=== PATIENT | female | born 1945 | race American Indian/Alaskan Native ===

== ENCOUNTER 2018-03-30 10:47 | Emergency (ER) | payer BC, MEDICARE ==
[2018-03-30 11:13] VITALS: BP 163/95; PULSE 78; RESP 18; TEMP 97.9; O2SAT 100
--- NOTE | 2018-03-30 12:49 | CT ---
Date of service: 03/30/2018 PROCEDURE: CT HEAD WITHOUT CONTRAST. HISTORY: frontal olvera, laceration s.p fall COMPARISON: None available. TECHNIQUE: Axial computed tomography images were obtained through the head/brain without intravenous contrast. Radiation dose: Total exam DLP = 1050.72 mGy-cm. This CT exam was performed using one or more of the following dose reduction techniques: Automated exposure control, adjustment of the mA and/or kV according to patient size, and/or use of iterative reconstruction technique. FINDINGS: HEMORRHAGE: No intracranial hemorrhage. BRAIN: Diffuse atrophy with prominence of the ventricles and sulci noted. No mass effect or edema. Scattered periventricular and subcortical white matter hypodensities, which are nonspecific, but often seen with chronic microvascular ischemic disease. Please note that MRI with diffusion imaging is more sensitive in the detection of acute ischemic event. VENTRICLES: No hydrocephalus. CALVARIUM: Unremarkable. PARANASAL SINUSES: Mucosal thickening of the ethmoid air cells. MASTOID AIR CELLS: Unremarkable as visualized. No inflammatory changes. OTHER FINDINGS: Mild frontal scalp soft tissue swelling. IMPRESSION: Mild frontal scalp soft tissue swelling. Generalized atrophy. Nonspecific white matter changes. Mucosal thickening of the ethmoid air cells; correlate clinically for sinusitis.
--- NOTE | 2018-03-30 12:54 | C.PDOC ---
History Of Present Illness 72 year old female presents to the ED for evaluation of a forehead laceration sustained this morning. Patient states she tripped and fell onto pavement. Patient hit her forehead and sustaind a laceration from her sunglasses. She denies loss of consciousness, nausea, vomiting, extremity pain, or any other injuries at this time. Time Seen by Provider: 03/30/18 11:13 Chief Complaint (Nursing): Trauma History Per: Patient History/Exam Limitations: no limitations Onset/Duration Of Symptoms: Hrs Current Symptoms Are (Timing): Still Present Additional History Per: Patient Past Medical History Reviewed: Historical Data, Nursing Documentation, Vital Signs Vital Signs: Last Vital Signs Temp 97.9 F 03/30/18 11:06 Pulse 78 03/30/18 11:06 Resp 18 03/30/18 11:06 BP 163/95 H 03/30/18 11:06 Pulse Ox 100 03/30/18 11:06 - Medical History PMH: Back Problems Surgical History: No Surg Hx Family History: States: Unknown Family Hx - Social History Hx Alcohol Use: No Hx Substance Use: No Review Of Systems Gastrointestinal: Negative for: Nausea, Vomiting Genitourinary: Negative for: Other Musculoskeletal: Negative for: Shoulder Pain, Arm Pain, Leg Pain Skin: Positive for: Other (forehead laceration ) Neurological: Negative for: Other (loss of consciousness ) Physical Exam - Physical Exam Appears: Non-toxic, No Acute Distress Skin: Normal Color, Warm, Dry Head: No Tenderness, No Swelling, Abrasion (to right side of mid-forehead), Laceration (2cm, superficial, linear to left side of mid-forehead ) Eye(s): bilateral: Normal Inspection, PERRL, EOMI Ear(s): Bilateral: Normal Nose: Normal, No Epistaxis, No Deformity, No Tenderness Oral Mucosa: Moist Lips: Swelling (left, lower ), No Laceration Teeth: Normal Dentition, No Loose, No Avulsed Neck: Normal ROM, No Midline Cervical Tenderness, No Paracervical Tenderness, Supple Chest: Symmetrical, No Deformity, No Tenderness Cardiovascular: Rhythm Regular Respiratory: No Accessory Muscle Use Extremity: Normal ROM, No Tenderness, No Deformity, No Swelling Neurological/Psych: Oriented x3, Normal Speech, Normal Cognition Gait: Steady ED Course And Treatment O2 Sat by Pulse Oximetry: 100 (on RA) Pulse Ox Interpretation: Normal - CT Scan/US CT Head Other Rad Studies (CT/US): Interpreted By Me, Read By Radiologist, Radiology Report Reviewed CT/US Interpretation: PROCEDURE: CT HEAD WITHOUT CONTRAST. HISTORY: frontal olvera, laceration s.p fall. COMPARISON: None available. TECHNIQUE: Axial computed tomography images were obtained through the head/brain without intravenous contrast. Radiation dose: Total exam DLP = 1050.72 mGy-cm. This CT exam was performed using one or more of the following dose reduction techniques: Automated exposure control, adjustment of the mA and/or kV according to patient size, and/or use of iterative reconstruction technique. FINDINGS: HEMORRHAGE: No intracranial hemorrhage. BRAIN: Diffuse atrophy with prominence of the ventricles and sulci noted. No mass effect or edema. Scattered periventricular and subcortical white matter hypodensities, which are nonspecific, but often seen with chronic microvascular ischemic disease. Please note that MRI with diffusion imaging is more sensitive in the detection of acute ischemic event. VENTRICLES: No hydrocephalus. CALVARIUM: Unremarkable. PARANASAL SINUSES: Mucosal thickening of the ethmoid air cells. MASTOID AIR CELLS: Unremarkable as visualized. No inflammatory changes. OTHER FINDINGS: Mild frontal scalp soft tissue swelling. IMPRESSION: Mild frontal scalp soft tissue swelling. Generalized atrophy. Nonspecific white matter changes. Mucosal thickening of the ethmoid air cells; correlate clinically for sinusitis. Laceration - Laceration Repair left side of mid-forehead Wound Length (In cm): 2 Description Of Wound: Linear Wound Examination: Irrigated With Saline, No FB With Wound Exploration, No Tendon Injury With Wound Exploration Wound Closure: Skin Glue (Dermabond ) Wound Complexity: Simple Medical Decision Making Medical Decision Making: Impression: 72 year old female with laceration to forehead Plan: * Tylenol PO * CT Head * reassess and disposition Progress: Tylenol PO given. CT head ordered and reviewed. 2cm linear laceration to the left side of mid-forehead. Wound irrigated with NS and explored. No FB seen. Area sealed with Dermabond skin adhesive. Patient tolerated well with no complications. On reassessment, patient is resting comfortably, showing no signs of distress and reports an improvement in symptoms. Patient is advised on wound care instructions and is stable for discharge. Disposition Counseled Patient/Family Regarding: Diagnosis, Need For Followup, Rx Given - Disposition Referrals: Angelita Chand MD [Medical Doctor] - Disposition: HOME/ ROUTINE Disposition Time: 13:00 Condition: STABLE Additional Instructions: Skin glue was used to close your wound, do not apply ointment to area as it may dissolve glue. Glue patch will gradually fall off in few days. Advise return to the ER if any alteration in behavior or mental status, severe headache, nausea, persistent vomiting, or loss of consciousness occurs. Instructions: Laceration Repair With Glue (DC), Head Injury (ED) Forms: [employer] (Macedonian) - POA Present On Arrival: None - Clinical Impression Clinical Impression: Forehead laceration, Contusion - PA / [employer]IST / Resident Statement MD/DO has reviewed & agrees with the documentation as recorded. - Scribe Statement The provider has reviewed the documentation as recorded by the Scribe (Irene Lopez) All medical record entries made by the Scribe were at my direction and personally dictated by me. I have reviewed the chart and agree that the record accurately reflects my personal performance of the history, physical exam, medical decision making, and the department course for this patient. I have also personally directed, reviewed, and agree with the discharge instructions and disposition.
== END 2018-03-30 13:06 | disposition home or self-care (01) ==
LOC: C.ER 10:47
DX: S01.81XA Laceration without foreign body of other part of head, initial encounter (principal); T14.8XXA Other injury of unspecified body region, initial encounter; W01.0XXA Fall on same level from slipping, tripping and stumbling without subsequent striking against object, initial encounter; Y92.480 Sidewalk as the place of occurrence of the external cause

== ENCOUNTER 2018-04-10 18:06 | Emergency (ER) | payer MEDICARE ==
[2018-04-10 18:24] VITALS: BMI 28.3
[2018-04-10 18:25] VITALS: TEMP 99.1
[2018-04-10] MEDS ORDERED: Sodium Chloride 0.9% 500 ML IV ONE ×2 (19:21→19:35)
[2018-04-10 19:52] LABS: BASO % 0.4 % (0.0-2.0); EOS # 0.1 K/uL (0.0-0.7); EOS % 1.8 % (0.0-4.0); HEMOGLOBIN 14.8 g/dL (11.0-16.0); LYMPH # 1.7 K/uL (1.0-4.3); LYMPH % 22.4 % (20.0-40.0); MEAN CELL VOLUME 87.8 fL (81.0-99.0); MEAN CORPUSCULAR HEMOGLOBIN 29.6 pg (27.0-31.0); MEAN CORPUSCULAR HGB CONC 33.7 g/dL (33.0-37.0); MEAN PLATELET VOLUME 9.6 fL (7.2-11.7); MONO # 0.4 K/uL (0.0-0.8); NEUT # 5.3 K/uL (1.8-7.0); NEUT % 70.4 % (50.0-75.0); RBC 4.99 Mil/uL (3.80-5.20); RED CELL DISTRIBUTION WIDTH 16.1 % (11.5-14.5); WHITE BLOOD COUNT 7.5 K/uL (4.8-10.8)
--- NOTE | 2018-04-10 20:01 | C.PDOC ---
History Of Present Illness 72 year old female presents to ED complaining of epigastric abdominal pain, cramping sensation, nausea, and diarrhea since this morning. Patient reports the pain is exacerbated when she tries to drink something. Patient reports a h istory of gastric sleeve 3 years ago at [facility]; last saw her surgeon in 2015. Patient denies fever, chills, vomiting, chest pain, shortness of breath, cough. Time Seen by Provider: 04/10/18 19:02 Chief Complaint (Nursing): Abdominal Pain History Per: Patient History/Exam Limitations: no limitations Onset/Duration Of Symptoms: Hrs Current Symptoms Are (Timing): Still Present Severity: Mild Quality Of Discomfort: Cramping Associated Symptoms: Nausea, Diarrhea. denies: Fever, Chills, Vomiting, Urinary Symptoms Past Medical History Reviewed: Historical Data, Nursing Documentation, Vital Signs Vital Signs: Last Vital Signs Temp 99.1 F 04/10/18 18:24 Pulse 76 04/10/18 18:24 Resp 18 04/10/18 18:24 BP 182/91 H 04/10/18 18:24 Pulse Ox 100 04/10/18 18:24 - Medical History PMH: Arthritis, Back Problems, Hypercholesterolemia, Pneumonia Surgical History: No Surg Hx Family History: States: No Known Family Hx - Social History Hx Alcohol Use: No Hx Substance Use: No - Immunization History Hx Tetanus Toxoid Vaccination: No Hx Influenza Vaccination: Yes (2018) Hx Pneumococcal Vaccination: Yes (2015) Review Of Systems Constitutional: Negative for: Fever, Chills Cardiovascular: Negative for: Chest Pain Respiratory: Negative for: Cough, Shortness of Breath Gastrointestinal: Positive for: Nausea, Abdominal Pain (Epigastric abdominal pain and cramping sensation.), Diarrhea. Negative for: Vomiting Genitourinary: Negative for: Dysuria, Hematuria Skin: Negative for: Rash Neurological: Negative for: Weakness, Numbness Physical Exam - Physical Exam Appears: Well, Non-toxic, No Acute Distress Skin: Warm, Dry Head: Normacephalic Oral Mucosa: Moist Neck: Supple Chest: Symmetrical, No Deformity Cardiovascular: Rhythm Regular Respiratory: Normal Breath Sounds, No Rales, No Rhonchi, No Wheezing Gastrointestinal/Abdominal: Bowel Sounds, Soft, Tenderness (Mild epigastric tenderness.), No Distention, No Guarding, No Rebound, Other (Well healed laparoscopic scars. (-) Arriaga's ) Neurological/Psych: Oriented x3 ED Course And Treatment - Laboratory Results Result Diagrams: 04/10/18 19:47 04/10/18 19:47 O2 Sat by Pulse Oximetry: 100 (RA) Pulse Ox Interpretation: Normal - Other Rad obs series X-Ray: Interpreted by Me, Viewed By Me (no air fluid levels, constipation) Progress Note: Blood work, EKG, UA, obstructive series ordered and reviewed. Patient given IV NS bolus, IV protonix, IV zofran. Patient able to tolerated PO in ED. Reevaluation Time: 21:45 Reassessment Condition: Improved (On reassessment, patient is resting comfortably and states she feels better, would like to go home. On exam, abdomen is soft and nontender. Rxs for bentyl and zofran given. Patient instructed to follow up with PMD in 1-2 days, and understand she should return to ED if symptoms worsen.) Disposition Counseled Patient/Family Regarding: Studies Performed, Diagnosis, Need For Followup, Rx Given - Disposition Referrals: Angelita Chand MD [Medical Doctor] - Disposition: HOME/ ROUTINE Disposition Time: 21:50 Condition: STABLE Additional Instructions: FOLLOW UP WITH YOUR DOCTOR IN 1-2 DAYS USE MEDICATIONS NEEDED DRINK PLENTY OF CLEAR FLUIDS RETURN TO ER IF SYMPTOMS WORSEN Prescriptions: Dicyclomine [Bentyl] 20 mg PO Q6 PRN #12 tab PRN Reason: ABDOMINAL CRAMPING Ondansetron [Zofran Odt] 4 mg PO Q8 PRN #12 odt PRN Reason: Nausea/Vomiting Instructions: Acute Abdomen (Belly Pain), Adult (DC) Forms: [employer] (Pakistani) Print Language: CROATIAN - Clinical Impression Clinical Impression: Abdominal cramping, Diarrhea - Scribe Statement The provider has reviewed the documentation as recorded by the Kemal Dickinson Yash Provider Attestation: All medical record entries made by the Kemal were at my direction and personally dictated by me. I have reviewed the chart and agree that the record accurately reflects my personal performance of the history, physical exam, medical decision making, and the department course for this patient. I have also personally directed, reviewed, and agree with the discharge instructions and disposition.
[2018-04-10 20:07] LABS: BLOOD UREA NITROGEN 9 mg/dL (7-17); CALCIUM 9.4 mg/dl (8.6-10.4); GFR NON-AFRICAN AMERICAN > 60; LIPASE 76 U/L (23-300)
[2018-04-10 20:14] LABS: ALB/GLOB RATIO 1.1 (1.0-2.1); ALBUMIN 4.7 g/dL (3.5-5.0); ALT/SGPT 19 U/L (9-52); AST/SGOT 46 U/L (14-36)
[2018-04-10 22:02] VITALS: BP 168/87; PULSE 80; RESP 14
--- NOTE | 2018-04-11 08:43 | RAD ---
Date of service: 04/10/2018 PROCEDURE: Radiographs of the chest and abdomen (obstructive series) HISTORY: ABD PAIN, NAUSEA COMPARISON: Chest x-ray performed 11/22/14 TECHNIQUE: AP radiograph of the chest, with upright and supine radiographs of the abdomen. FINDINGS: CHEST: Heart size appears within normal limits. Ectatic aorta containing atherosclerotic calcifications. No focal consolidation, significant pleural effusion, or definite pneumothorax identified.Please note that chest x-ray has limited sensitivity for the detection of pulmonary masses. ABDOMEN AND PELVIS: Nonobstructive bowel gas pattern. No definite free air. Left upper quadrant surgical clips. Mild constipation. IMPRESSION: Mild constipation.
--- NOTE | 2018-04-12 21:20 | CARD ---
APPROVED REPORT Date of service: 04/10/2018 EKG Measurement Heart [id number] <Conclusion> Normal sinus rhythm with sinus arrhythmia Normal ECG
[2018-04-13 15:02] VITALS: O2SAT 100
== END 2018-04-10 22:02 | disposition home or self-care (01) ==
LOC: C.ER 18:06
DX: R10.13 Epigastric pain (principal); R19.7 Diarrhea, unspecified
CPT/HCPCS: 74022; 80053; 83690; 85025; 93005; 96374; 96375; 99284; C9113; J2405; J7040